=== PATIENT | male | born 2005 | race Caucasian/White ===

== ENCOUNTER 2025-02-21 14:27 | Emergency (ER) | payer OTHER, SELFPAY ==
[2025-02-21 14:28] VITALS: BP 140/81; PULSE 101; RESP 18; TEMP 35.9; O2SAT 97; BMI 23.8
[2025-02-21 15:49] VITALS: BP 129/70; PULSE 67; RESP 18; TEMP 35.9; O2SAT 97
== END 2025-02-21 15:50 | disposition home or self-care (01) ==
PROVIDERS: Emergency Provider Emergency Medicine; PCP Nurse Practitioner Family; Visit Provider Emergency Medicine
DX: S42.031A Displaced fracture of lateral end of right clavicle, initial encounter for closed fracture (principal); W50.0XXA Accidental hit or strike by another person, initial encounter; Y93.65 Activity, lacrosse and field hockey
CPT/HCPCS: 73000; 96372; 99283